=== PATIENT | male | born 1990 | race Caucasian/White ===

== ENCOUNTER 2021-06-16 19:36 | Emergency (ER) | payer MEDICAID, SELFPAY ==
[2021-06-16 19:42] VITALS: BP 125/85; PULSE 110; RESP 16; TEMP 36.8; O2SAT 96; BMI 27.5
[2021-06-16 20:15] VITALS: PULSE 104; RESP 14; O2SAT 97
--- NOTE | 2021-06-16 20:30 | PC.NURSE ---
spoke [facility] poison control. pt to be monitored for 4-6 hours. no need for any lab draws. monitor for pt SaO2 to maintain stable and pt to be easily woken. if after 4 hrs pt SaO2 is stable and he can ambulate aat baseline then pt can be d/c. these instructions were conveyed to the
--- NOTE | 2021-06-16 21:13 | ED_ITS ---
HPI - Overdose General Chief Complaint: Overdose Stated Complaint: accident of too many pills Time Seen by Provider: 06/16/21 20:09 Source: family Mode of arrival: ambulatory Limitations: other (Autistic) History of Present Illness HPI Narrative: Patient 30-year-old was stating nonverbal on Klonopin 1 mg twice daily today at 19:00 by mistake he took 4 tablets. No other medication were taken. Patient otherwise behaving normally awake alert with stable vitals saturating 96% at room air heart rate was 110 when arrived Related Data Allergies Allergy/AdvReac Type Severity Reaction Status Date / Time haloperidol [From Haldol] AdvReac Muscle Pain Verified 06/16/21 19:41 peanut AdvReac Swelling Verified 06/16/21 19:40 Review of Systems Review of Systems: Yes all other systems are reviewed and are negative [facility] Past Medical History Medical History Autism Seizure Social History Social History Alcohol intake: never Patient Tobacco Use Status: Never used Tobacco Use of substances other than those prescribed or required for medical reasons: No Advance Directives: No Advance Directives Information Provided: Yes Physical Exam Vital Signs: Vital Signs: Last Vital Signs Temp 98.3 F 06/16/21 19:42 Pulse 107 H 06/16/21 21:33 Resp 14 06/16/21 20:15 BP 125/85 06/16/21 19:42 Pulse Ox 97 06/16/21 21:33 Body Mass Index 27.5 Appearance: Alert. And awake. No acute distress. Eyes: PERRLA, No Nystagmus ENT: Pharynx normal. Oral Mucosa moist Neck: Normal inspection. Neck supple. CVS: Normal heart rate and rhythm. Pulses normal. Respiratory: No respiratory distress. Equal air entry bilateral, no wheezing/rales/rhonchi Abdomen: Soft and nontender. Bowel sounds are present, no mass palpable, no CVA tenderness Skin: Skin warm and dry. Normal skin color. Normal skin turgor. Extremities: No lower extremity edema. No calf tenderness Neuro: Alert and awake at baseline nonverbal No motor deficit. MDM - Overdose MDM Narrative Medical decision making narrative: Patient with accidental overdose of Klonopin alert awake at time of discharge. Patient's mother re-educated about safety of the medication advised to keep the medication locked space and give him medications under direct supervision. Discharge Plan Discharge Clinical Impression: Drug overdose Patient Disposition: Home, Self-Care Instructions: Medication Safety for Older Adults (ED) Additional Instructions: Keep the medication in secured places and watch when patient takes his medication Report to the ER if patient is too lethargic/shortness of breath Interventions: ED Discharge Assessment Last Done: 06/16/21 21:52 Discharge Date/Time: 06/16/21 21:53
[2021-06-16 21:33] VITALS: PULSE 107; O2SAT 97
== END 2021-06-16 21:53 | disposition home or self-care (01) ==
PROVIDERS: Emergency Provider Internal Medicine; PCP Family Medicine
DX: T42.4X1A Poisoning by benzodiazepines, accidental (unintentional), initial encounter (principal); Y92.9 Unspecified place or not applicable; F84.0 Autistic disorder
CPT/HCPCS: 99284